=== PATIENT | female | born 1990 | race African-American/Black ===

== ENCOUNTER 2017-11-07 15:32 | Emergency (ER) | payer OTHER ==
[~2017-11-07] VITALS: Ht 165.1 cm; Wt 48.0 kg
[2017-11-07] MEDS ORDERED: LACTULOSE 20G/30ML UDC PO ONE (17:45)
[2017-11-07] MEDS ORDERED: MAGNESIUM CITRATE 300ML SOLUTION PO ONE (17:45)
[2017-11-07] MEDS ORDERED: MINERAL OIL 30ML BOTTLE PO ONE (17:45)
[2017-11-07] MEDS ORDERED: MAGNESIUM HYDROXIDE 400MG/5ML 30ML UDC PO ONE (17:45)
[2017-11-07 18:49] LABS: HEMATOCRIT. 28.8 % (36.0-48.0); HEMOGLOBIN. 8.4 g/dL (12.0-16.0); MEAN CORPUSCULAR HEMOGLOBIN 19.3 pg (28.0-32.0); MEAN PLATELET VOLUME 9.2 fl (7.4-10.4); PLATELET 535 x1000/uL (130-400); RED BLOOD CELL COUNT 4.36 mill/uL (4.2-5.4)
[2017-11-07 18:55] LABS: CHLORIDE 107 mEq/L (98-107)
[2017-11-07 19:48] LABS: PLATELET ESTIMATE INCREASED
[2017-11-07 20:30] VITALS: BP 117/78
[2017-11-07 20:56] LABS: CLARITY URINE CLOUDY (CLEAR); COLOR URINE YELLOW (YELLOW); KETONES URINE 1+ (NEGATIVE); LEUKOCYTE ESTERASE URINE 1+ (NEGATIVE); NITRITE URINE NEGATIVE (NEGATIVE); OCCULT BLOOD URINE NEGATIVE (NEGATIVE); PROTEIN URINE NEGATIVE (NEGATIVE); SPECIFIC GRAVITY URINE 1.034 (1.005-1.030)
== END 2017-11-07 20:51 | disposition home or self-care (01) ==
LOC: ER 15:32
DX: D64.9 Anemia, unspecified (principal); R05 Cough; K59.00 Constipation, unspecified; R14.0 Abdominal distension (gaseous)
CPT/HCPCS: 36415; 71045; 80053; 81003; 81025; 85025; 86850; 86900; 99285

== ENCOUNTER 2018-03-16 15:36 | Emergency (ER) | payer OTHER ==
[~2018-03-16] VITALS: Ht 165.1 cm; Wt 49.0 kg
[2018-03-16] MEDS ORDERED: IBUPROFEN 600MG TABLET PO ONE (16:30)
[2018-03-16] MEDS ORDERED: ACETAMINOPHEN 500MG TABLET PO ONE (16:30)
[2018-03-16 18:45] VITALS: BP 120/85
== END 2018-03-16 18:46 | disposition home or self-care (01) ==
LOC: ER 15:36
DX: K59.00 Constipation, unspecified (principal); M79.644 Pain in right finger(s)
CPT/HCPCS: 29125; 73130; 81025; 99283

== ENCOUNTER 2018-03-18 10:04 | Emergency (ER) | payer OTHER ==
[~2018-03-18] VITALS: Ht 165.1 cm; Wt 49.0 kg
[2018-03-18] MEDS ORDERED: MAGNESIUM CITRATE 300ML SOLUTION PO ONE (11:00)
[2018-03-18 11:15] VITALS: BP 120/82
== END 2018-03-18 13:01 | disposition home or self-care (01) ==
LOC: ER 10:17
DX: K59.00 Constipation, unspecified (principal)
CPT/HCPCS: 99282

== ENCOUNTER 2019-01-31 21:56 | Emergency (ER) | payer MEDICAID, OTHER ==
[~2019-01-31] VITALS: Ht 165.1 cm; Wt 59.0 kg
[2019-02-01 00:47] VITALS: BP 109/69
== END 2019-02-01 00:48 | disposition home or self-care (01) ==
LOC: ER 21:56
DX: K59.00 Constipation, unspecified (principal); D64.9 Anemia, unspecified
CPT/HCPCS: 99281; 99283

== ENCOUNTER 2019-02-02 15:23 | Emergency (ER) | payer MEDICAID, OTHER ==
[~2019-02-02] VITALS: Ht 165.1 cm; Wt 47.0 kg
[2019-02-02] MEDS ORDERED: SODIUM CHLORIDE 0.9% 1,000 ML IV ONE (21:21)
[2019-02-02] MEDS ORDERED: NA PHOS,M-B/NA PHOS,DI-BA ENEMA 118ML PR ONE (21:30)
[2019-02-02] MEDS ORDERED: SORBITOL 70% SOLN 30ML PO ONE (21:30)
[2019-02-02 21:44] LABS: CHLORIDE 112 mEq/L (98-107)
[2019-02-02 21:49] LABS: HCG SCREEN NEGATIVE
[2019-02-02 21:50] LABS: HEMATOCRIT. 26.9 % (36.0-48.0); HEMOGLOBIN. 8.1 g/dL (12.0-16.0); MEAN CORPUSCULAR HEMOGLOBIN 20.5 pg (28.0-32.0); MEAN CORPUSCULAR VOLUME 68.4 fL (81.0-99.0); MEAN PLATELET VOLUME 9.8 fl (7.4-10.4); PLATELET 301 x1000/uL (130-400); RED BLOOD CELL COUNT 3.94 mill/uL (4.2-5.4); RED CELL DISTRIBUTION WIDTH 19.3 % (11.6-14.6)
[2019-02-02 22:10] LABS: PLATELET ESTIMATE NORMAL
[2019-02-03 00:37] VITALS: BP 122/73
== END 2019-02-03 00:38 | disposition home or self-care (01) ==
LOC: ER 15:23
DX: K59.00 Constipation, unspecified (principal)
CPT/HCPCS: 36415; 74018; 80053; 83690; 84703; 85025; 99284; J7030

== ENCOUNTER 2020-02-22 11:41 | Emergency (ER) | payer MEDICAID ==
[~2020-02-22] VITALS: Ht 162.6 cm; Wt 47.0 kg
[2020-02-22 12:46] LABS: HEMATOCRIT. 25.9 % (36.0-48.0); HEMOGLOBIN. 7.6 g/dL (12.0-16.0); MEAN CORPUSCULAR HEMOGLOBIN 18.8 pg (28.0-32.0); MEAN CORPUSCULAR VOLUME 64.2 fL (81.0-99.0); MEAN PLATELET VOLUME 9.9 fl (7.4-10.4); PLATELET 88 x1000/uL (130-400); RED BLOOD CELL COUNT 4.03 mill/uL (4.2-5.4); RED CELL DISTRIBUTION WIDTH 21.2 % (11.6-14.6)
[2020-02-22 12:54] LABS: CHLORIDE 111 mEq/L (98-107)
[2020-02-22 12:58] LABS: HCG SCREEN NEGATIVE
[2020-02-22 13:31] LABS: PLATELET ESTIMATE DECREASED
[2020-02-22] MEDS ORDERED: MAGNESIUM CITRATE 300ML SOLUTION PO NR (14:00)
[2020-02-22] MEDS ORDERED: SODIUM CHLORIDE 0.9% 1,000 ML IV ONE (14:00)
[2020-02-22 14:28] LABS: CLARITY URINE CLOUDY (CLEAR); COLOR URINE YELLOW (YELLOW); KETONES URINE 4+ (NEGATIVE); LEUKOCYTE ESTERASE URINE 1+ (NEGATIVE); NITRITE URINE NEGATIVE (NEGATIVE); OCCULT BLOOD URINE 2+ (NEGATIVE); PROTEIN URINE TRACE (NEGATIVE); SPECIFIC GRAVITY URINE 1.027 (1.005-1.030)
[2020-02-22] MEDS ORDERED: POLYETHYLENE GLYCOL-ELECTROLYTE 4000ML PO ONE (16:30)
[2020-02-22] MEDS ORDERED: NA PHOS,M-B/NA PHOS,DI-BA ENEMA 118ML PR ONE (19:00)
[2020-02-22] MEDS ORDERED: GLYCERIN ADULT SUPPOSITORY PR NR (19:00)
[2020-02-22 22:03] VITALS: BP 109/59
== END 2020-02-22 22:04 | disposition home or self-care (01) ==
LOC: ER 11:41
DX: K59.00 Constipation, unspecified (principal); R10.84 Generalized abdominal pain; F12.10 Cannabis abuse, uncomplicated
CPT/HCPCS: 36415; 74018; 80053; 81003; 84703; 85025; 93005; 99285

== ENCOUNTER 2020-11-06 23:29 | Emergency (ER) | payer MEDICAID, OTHER ==
[~2020-11-06] VITALS: Ht 162.6 cm; Wt 55.2 kg
[~2020-11-06 23:29] MED LIST: DOCU-138 MT; FERR-71 MT
[2020-11-06 23:48] VITALS: BP 130/68
== END 2020-11-07 01:50 | disposition left against medical advice (07) ==
LOC: ER 23:29
DX: Z53.21 Procedure and treatment not carried out due to patient leaving prior to being seen by health care provider (principal)

== ENCOUNTER 2021-09-13 16:40 | Inpatient (IN) | payer OTHER ==
[~2021-09-13] VITALS: Ht 162.6 cm; Wt 54.4 kg
[2021-09-13 23:40] LABS: HEMATOCRIT. 21.6 % (36.0-48.0); MEAN CORPUSCULAR HEMOGLOBIN 17.3 pg (28.0-32.0); MEAN CORPUSCULAR VOLUME 62.8 fL (81.0-99.0); MEAN PLATELET VOLUME 9.3 fl (7.4-10.4); PLATELET 430 x1000/uL (130-400); RED BLOOD CELL COUNT 3.44 mill/uL (4.2-5.4); RED CELL DISTRIBUTION WIDTH 21.6 % (11.6-14.6)
[2021-09-14 00:01] LABS: HEMOGLOBIN. 5.9 g/dL (12.0-16.0)
[2021-09-14 00:12] LABS: CHLORIDE 110 mEq/L (98-107)
[2021-09-14 04:47] LABS: PLATELET ESTIMATE INCREASED
[2021-09-14 05:40] VITALS: BP 110/52
[2021-09-14 06:58] VITALS: BP 111/57
[2021-09-14 08:00] VITALS: BP 123/75
[2021-09-14] MEDS ORDERED: ONDANSETRON HCL 4MG/2ML INJ IV PRN (10:00)
[2021-09-14] MEDS ORDERED: CLONIDINE 0.1MG TABLET PO PRN (10:00)
[2021-09-14] MEDS ORDERED: ACETAMINOPHEN 325MG TABLET PO PRN (10:00)
[2021-09-14] MEDS ORDERED: IPRATROPIUM/ALBUTEROL 0.5-3(2.5)MG/3ML NEB HHN PRN (10:00)
[2021-09-14] MEDS ORDERED: DIPHENHYDRAMINE 50MG/ML VIAL IV PRN (10:00)
[2021-09-14 11:50] VITALS: BP 107/60
[2021-09-14 13:10] LABS: HEMATOCRIT 30.8 % (36.0-48.0); HEMOGLOBIN 9.4 g/dL (12.0-16.0)
[2021-09-14 16:00] VITALS: BP 107/60
[2021-09-14 17:15] VITALS: BP 105/62
== END 2021-09-14 18:30 | disposition home or self-care (01) | DRG 532 ==
LOC: ER 16:40 → 6WST 09-14 01:36 → ENRESERV 09-14 02:15
PROVIDERS: ADMIT Internal Medicine; ATTEND Internal Medicine
PROC: 30233N1 Transfusion of Nonautologous Red Blood Cells into Peripheral Vein, Percutaneous Approach (ICD-10-PCS; principal; 2021-09-14)
DX: N92.0 Excessive and frequent menstruation with regular cycle (principal); D50.0 Iron deficiency anemia secondary to blood loss (chronic); Z79.899 Other long term (current) drug therapy
CPT/HCPCS: 36415; 76830; 76856; 80053; 85014; 85018; 85025; 86850; 86900; 86920; 93005; 93970; 99291; P9016

== ENCOUNTER 2021-11-24 09:47 | Emergency (ER) | payer OTHER ==
[~2021-11-24] VITALS: Ht 162.6 cm; Wt 57.0 kg
[2021-11-24 10:02] VITALS: BP 117/61
[2021-11-24] MEDS ORDERED: SODIUM CHLORIDE 0.9% 1,000 ML IV ONE (10:15)
[2021-11-24 10:58] LABS: BASOPHILS % 0.5 % (0.0-2.0); EOSINOPHILS % 1.4 % (0.0-5.0); HEMATOCRIT. 31.8 % (36.0-48.0); HEMOGLOBIN. 10.2 g/dL (12.0-16.0); LYMPHOCYTES % 23.9 % (20.0-50.0); MEAN CORPUSCULAR HEMOGLOBIN 25.2 pg (28.0-32.0); MEAN CORPUSCULAR VOLUME 78.1 fL (81.0-99.0); MEAN PLATELET VOLUME 8.7 fl (7.4-10.4); NEUTROPHILS % 69.2 % (40.0-76.0); PLATELET 342 x1000/uL (130-400); RED BLOOD CELL COUNT 4.07 mill/uL (4.2-5.4); RED CELL DISTRIBUTION WIDTH 23.4 % (11.6-14.6)
[2021-11-24 11:06] LABS: CHLORIDE 109 mEq/L (98-107)
[2021-11-24 11:07] LABS: HCG SCREEN NEGATIVE
[2021-11-24] MEDS ORDERED: ONDA4TAB11 PO (12:47)
[2021-11-24 12:52] LABS: PLATELET ESTIMATE NORMAL
== END 2021-11-24 13:10 | disposition home or self-care (01) ==
LOC: ER 10:19
DX: R11.0 Nausea (principal); D64.9 Anemia, unspecified
CPT/HCPCS: 36415; 80053; 83690; 84484; 84703; 85025; 86850; 86900; 86901; 96360; 99283; J7030

== ENCOUNTER 2022-07-21 22:34 | Emergency (ER) | payer OTHER ==
[~2022-07-21] VITALS: Ht 162.6 cm; Wt 49.7 kg
[~2022-07-21 22:34] MED LIST changes: +ONDA4TAB11 PO
[2022-07-21 23:55] LABS: BASOPHILS % 0.8 % (0.0-2.0); EOSINOPHILS % 0.5 % (0.0-5.0); HEMATOCRIT. 22.9 % (36.0-48.0); MEAN CORPUSCULAR HEMOGLOBIN 19.2 pg (28.0-32.0); MEAN CORPUSCULAR VOLUME 64.8 fL (81.0-99.0); MEAN PLATELET VOLUME 8.7 fl (7.4-10.4); MONOCYTES % 6.5 % (2.0-8.0); NEUTROPHILS % 55.2 % (40.0-76.0); PLATELET 857 x1000/uL (130-400); RED BLOOD CELL COUNT 3.54 mill/uL (4.2-5.4); RED CELL DISTRIBUTION WIDTH 20.9 % (11.6-14.6)
[2022-07-22 00:04] LABS: CHLORIDE 111 mEq/L (98-107)
[2022-07-22 00:09] LABS: HEMOGLOBIN. 6.8 g/dL (12.0-16.0)
[2022-07-22 00:12] LABS: HCG SCREEN NEGATIVE
[2022-07-22 00:26] LABS: CLARITY URINE CLOUDY (CLEAR); COLOR URINE YELLOW (YELLOW); KETONES URINE TRACE (NEGATIVE); LEUKOCYTE ESTERASE URINE TRACE (NEGATIVE); NITRITE URINE NEGATIVE (NEGATIVE); OCCULT BLOOD URINE NEGATIVE (NEGATIVE); PH URINE 6.5 (4.5-8.0); PROTEIN URINE NEGATIVE (NEGATIVE); SPECIFIC GRAVITY URINE 1.026 (1.005-1.030)
[2022-07-22 02:02] LABS: PLATELET ESTIMATE MARKEDLY INCREASED
[2022-07-22 07:52] VITALS: BP 116/64
== END 2022-07-22 08:05 | disposition left against medical advice (07) ==
LOC: ER 22:34 → CANBEDREQ 07-24 14:05
DX: D64.9 Anemia, unspecified (principal); K59.00 Constipation, unspecified
CPT/HCPCS: 36415; 71045; 80053; 81003; 84484; 84703; 85025; 86850; 86900; 86901; 86920; 93005; 99285; Z7610; 36430; P9016

== ENCOUNTER 2024-02-09 10:24 | Emergency (ER) | payer MEDICAID ==
[~2024-02-09] VITALS: Ht 162.6 cm; Wt 53.0 kg
[~2024-02-09 10:24] MED LIST changes: +ONDA-239 PO; -ONDA4TAB11 PO
[2024-02-09 10:29] VITALS: O2SAT 100
[2024-02-09 11:37] LABS: HEMATOCRIT. 30.6 % (36.0-48.0); HEMOGLOBIN. 8.9 g/dL (12.0-16.0); MEAN CORPUSCULAR HEMOGLOBIN 19.9 pg (28.0-32.0); MEAN CORPUSCULAR VOLUME 68.6 fL (81.0-99.0); MEAN PLATELET VOLUME 9.4 fl (7.4-10.4); PLATELET 382 x1000/uL (130-400); RED BLOOD CELL COUNT 4.46 mill/uL (4.2-5.4); RED CELL DISTRIBUTION WIDTH 19.4 % (11.6-14.6); WHITE BLOOD COUNT 6.2 x1000/uL (4.5-11.0)
[2024-02-09 11:44] LABS: DIFFERENTIAL COMMENT 1
[2024-02-09 11:55] LABS: CHLORIDE 107 mEq/L (98-107); POTASSIUM 4.9 mEq/L (3.5-5.1); SODIUM 137 mEq/L (136-145)
[2024-02-09 11:56] LABS: CALCIUM 9.8 mg/dL (8.7-10.4); CARBON DIOXIDE 23 mEq/L (21-32)
[2024-02-09 12:01] LABS: CREATININE 0.9 mg/dL (0.6-1.0); GLUCOSE 98 mg/dL (70-105)
[2024-02-09 12:02] LABS: UREA NITROGEN BLOOD 15 mg/dL (9-23)
[2024-02-09 12:03] LABS: ALANINE AMINOTRANSFERASE 7 IU/L (10-49); ALBUMIN 4.6 g/dL (3.2-4.8); ASPARTATE AMINOTRANSFERASE 17 IU/L (<34)
[2024-02-09 12:04] LABS: BILIRUBIN DIRECT 0.3 mg/dL (<=3.0); BILIRUBIN TOTAL 1.1 mg/dL (0.1-1.0)
[2024-02-09] MEDS: ACETAMINOPHEN 325MG TABLET PO ONE (12:19)
[2024-02-09 15:12] LABS: CLARITY URINE CLOUDY (CLEAR); COLOR URINE YELLOW (YELLOW); GLUCOSE URINE NEGATIVE (NEGATIVE); KETONES URINE TRACE (NEGATIVE); LEUKOCYTE ESTERASE URINE 2+ (NEGATIVE); NITRITE URINE POSITIVE (NEGATIVE); OCCULT BLOOD URINE NEGATIVE (NEGATIVE); PH URINE 5.5 (4.5-8.0); PROTEIN URINE NEGATIVE (NEGATIVE); SPECIFIC GRAVITY URINE 1.023 (1.005-1.030); UROBILINOGEN URINE 0.2 E.U./dL (0.2-1.0)
[2024-02-09 15:47] LABS: ANISOCYTOSIS 2+; MICROCYTOSIS 3+; PLATELET ESTIMATE NORMAL
[2024-02-09 16:01] LABS: BACTERIA URINE 4+; RBC URINE 0-2 /hpf (0-2); SQUAMOUS EPITHELIAL CELL URINE 2+ /lpf (RARE/1+)
[2024-02-09 16:25] LABS: HCG SCREEN NEGATIVE
[2024-02-09] MEDS ORDERED: NITR-87 MT (16:47)
[2024-02-09] MEDS ORDERED: TOPUD MT (16:47)
[2024-02-09] MEDS ORDERED: DOCU-138 MT (16:47)
[2024-02-09] MEDS ORDERED: ONDA-239 PO (16:47)
[2024-02-09] MEDS ORDERED: FERR-71 MT (16:47)
[2024-02-09] MEDS ORDERED: IBUP-1521 MT (16:47)
[2024-02-09 16:54] VITALS: BP 118/70; PULSE 84; RESP 18; TEMP 37.05852; O2SAT 100
== END 2024-02-09 16:54 | disposition home or self-care (01) ==
LOC: ER 10:24
DX: N39.0 Urinary tract infection, site not specified (principal); D64.9 Anemia, unspecified
CPT/HCPCS: 36415; 80048; 80076; 81003; 84703; 85025; 99283

== ENCOUNTER 2024-05-16 17:12 | Emergency (ER) | payer MEDICAID ==
[~2024-05-16] VITALS: Ht 162.6 cm; Wt 46.3 kg
[~2024-05-16 17:12] MED LIST changes: +IBUP-1521 MT; +NITR-87 MT; +TOPUD MT
[2024-05-16 17:18] VITALS: BP 139/73; TEMP 37.1; O2SAT 100
[2024-05-16 17:20] VITALS: PULSE 100; RESP 16; O2SAT 100
[2024-05-16 17:52] LABS: CLARITY URINE CLEAR (CLEAR); COLOR URINE YELLOW (YELLOW)
[2024-05-16 17:53] LABS: GLUCOSE URINE NEGATIVE (NEGATIVE); PROTEIN URINE 1+ (NEGATIVE)
[2024-05-16 17:55] LABS: KETONES URINE 3+ (NEGATIVE)
[2024-05-16 17:56] LABS: LEUKOCYTE ESTERASE URINE NEGATIVE (NEGATIVE); NITRITE URINE NEGATIVE (NEGATIVE); OCCULT BLOOD URINE 1+ (NEGATIVE); UROBILINOGEN URINE 0.2 E.U./dL (0.2-1.0)
[2024-05-16 18:03] LABS: BACTERIA URINE TRACE; SQUAMOUS EPITHELIAL CELL URINE FEW /lpf (RARE/1+); WBC URINE 0-2 /hpf (0-2)
[2024-05-16 21:08] LABS: BASOPHILS % 1.1 % (0.0-2.0); DIFFERENTIAL COMMENT 0; EOSINOPHILS % 0.1 % (0.0-5.0); HEMATOCRIT. 35.3 % (36.0-48.0); HEMOGLOBIN. 10.6 g/dL (12.0-16.0); LYMPHOCYTES % 22.1 % (20.0-50.0); MEAN CORPUSCULAR HEMOGLOBIN 21.9 pg (28.0-32.0); MEAN CORPUSCULAR HGB CONC 30.2 g/dL (31.0-37.0); MEAN CORPUSCULAR VOLUME 72.5 fL (81.0-99.0); MEAN PLATELET VOLUME 9.5 fl (7.4-10.4); MONOCYTES % 13.8 % (2.0-8.0); NEUTROPHILS % 62.9 % (40.0-76.0); PLATELET 188 x1000/uL (130-400); RED BLOOD CELL COUNT 4.87 mill/uL (4.2-5.4); RED CELL DISTRIBUTION WIDTH 21.7 % (11.6-14.6); WHITE BLOOD COUNT 5.5 x1000/uL (4.5-11.0)
[2024-05-16 21:13] LABS: CHLORIDE 106 mEq/L (98-107); POTASSIUM 3.7 mEq/L (3.5-5.1); SODIUM 139 mEq/L (136-145)
[2024-05-16 21:14] LABS: CARBON DIOXIDE 23 mEq/L (21-32)
[2024-05-16 21:15] LABS: CALCIUM 9.6 mg/dL (8.7-10.4)
[2024-05-16 21:19] LABS: CREATININE 0.9 mg/dL (0.6-1.0); GLUCOSE 97 mg/dL (70-105); UREA NITROGEN BLOOD 23 mg/dL (9-23)
[2024-05-16 21:25] LABS: HCG SCREEN NEGATIVE
[2024-05-16] MEDS ORDERED: NAPR-681 MT (22:22)
== END 2024-05-16 22:30 | disposition home or self-care (01) ==
LOC: ER 17:20
DX: N94.3 Premenstrual tension syndrome (principal); Z79.1 Long term (current) use of non-steroidal anti-inflammatories (NSAID)
CPT/HCPCS: 36415; 80048; 81003; 81025; 84703; 85025; 86850; 86900; 99285

== ENCOUNTER 2024-06-01 11:10 | Emergency (ER) | payer MEDICAID, OTHER ==
[~2024-06-01] VITALS: Ht 162.6 cm; Wt 47.0 kg
[~2024-06-01 11:10] MED LIST changes: +NAPR-681 MT
[2024-06-01 11:45] VITALS: O2SAT 99
[2024-06-01 13:16] LABS: CLARITY URINE TURBID (CLEAR); COLOR URINE DARK YELLOW (YELLOW); GLUCOSE URINE NEGATIVE (NEGATIVE); KETONES URINE TRACE (NEGATIVE); LEUKOCYTE ESTERASE URINE 2+ (NEGATIVE); NITRITE URINE POSITIVE (NEGATIVE); OCCULT BLOOD URINE NEGATIVE (NEGATIVE); PH URINE 5.5 (4.5-8.0); PROTEIN URINE 1+ (NEGATIVE); SPECIFIC GRAVITY URINE 1.026 (1.005-1.030)
[2024-06-01 13:18] LABS: CHLORIDE 105 mEq/L (98-107); POTASSIUM 4.3 mEq/L (3.5-5.1); SODIUM 140 mEq/L (136-145)
[2024-06-01] MEDS: ONDANSETRON 4MG ODT PO ONE (13:18)
[2024-06-01 13:19] LABS: CALCIUM 9.4 mg/dL (8.7-10.4); CARBON DIOXIDE 26 mEq/L (21-32)
[2024-06-01 13:21] LABS: HEMOGLOBIN 9.4 g/dL (12.0-16.0); MEAN CORPUSCULAR HEMOGLOBIN 21.4 pg (28.0-32.0); MEAN CORPUSCULAR HGB CONC 30.4 g/dL (31.0-37.0); MEAN CORPUSCULAR VOLUME 70.3 fL (81.0-99.0); PLATELET 931 x1000/uL (130-400); RED CELL DISTRIBUTION WIDTH 21.4 % (11.6-14.6); WHITE BLOOD COUNT 13.2 x1000/uL (4.5-11.0)
[2024-06-01 13:24] LABS: CREATININE 0.8 mg/dL (0.6-1.0); GLUCOSE 98 mg/dL (70-105); UREA NITROGEN BLOOD 15 mg/dL (9-23)
[2024-06-01 13:25] LABS: MUCUS URINE 3+ /lpf (< = 2+); SQUAMOUS EPITHELIAL CELL URINE 3+ /lpf (RARE/1+)
[2024-06-01 13:26] LABS: BACTERIA URINE 4+; RBC URINE 0-2 /hpf (0-2); WBC URINE 15-25 /hpf (0-2)
[2024-06-01 14:39] VITALS: BP 101/66; PULSE 90; RESP 18; TEMP 36.8; O2SAT 100
[2024-06-01] MEDS ORDERED: ONDA4TAB50 MT (14:44)
[2024-06-01] MEDS ORDERED: CIPR500T5 MT (14:44)
== END 2024-06-01 14:50 | disposition home or self-care (01) ==
LOC: ER 11:10
DX: N12 Tubulo-interstitial nephritis, not specified as acute or chronic (principal); Z79.1 Long term (current) use of non-steroidal anti-inflammatories (NSAID)
CPT/HCPCS: 99283; 80048; 81003; 81025; 85027; 87086; 87186; 87077; 36415; Q0162

== ENCOUNTER 2024-07-31 16:00 | Emergency (ER) | payer MEDICAID, OTHER ==
[~2024-07-31] VITALS: Ht 175.3 cm; Wt 113.0 kg
[~2024-07-31 16:00] MED LIST changes: +CIPR500T5 MT; +ONDA4TAB50 MT
[2024-07-31 16:01] VITALS: O2SAT 98
[2024-07-31 16:24] VITALS: BP 168/137; PULSE 100; RESP 14; TEMP 36.8
[2024-07-31 16:41] LABS: HEMATOCRIT. 30.6 % (36.0-48.0); HEMOGLOBIN. 9.2 g/dL (12.0-16.0); MEAN CORPUSCULAR HEMOGLOBIN 20.8 pg (28.0-32.0); MEAN CORPUSCULAR HGB CONC 30.2 g/dL (31.0-37.0); MEAN CORPUSCULAR VOLUME 68.8 fL (81.0-99.0); PLATELET 278 x1000/uL (130-400); RED BLOOD CELL COUNT 4.44 mill/uL (4.2-5.4); RED CELL DISTRIBUTION WIDTH 20.5 % (11.6-14.6); WHITE BLOOD COUNT 8.8 x1000/uL (4.5-11.0)
[2024-07-31 16:42] LABS: DIFFERENTIAL COMMENT 1
[2024-07-31 16:43] LABS: CHLORIDE 106 mEq/L (98-107); POTASSIUM 4.1 mEq/L (3.5-5.1); SODIUM 139 mEq/L (136-145)
[2024-07-31 16:44] LABS: CARBON DIOXIDE 23 mEq/L (21-32)
[2024-07-31 16:45] LABS: CALCIUM 10.3 mg/dL (8.7-10.4)
[2024-07-31 16:49] LABS: CREATININE 0.8 mg/dL (0.6-1.0); GLUCOSE 112 mg/dL (70-105); UREA NITROGEN BLOOD 16 mg/dL (9-23)
[2024-07-31 16:51] LABS: ALANINE AMINOTRANSFERASE < 7 IU/L (10-49); ALBUMIN 4.7 g/dL (3.2-4.8); ASPARTATE AMINOTRANSFERASE 14 IU/L (<34)
[2024-07-31 16:52] LABS: BILIRUBIN DIRECT 0.2 mg/dL (<=3.0); BILIRUBIN TOTAL 0.9 mg/dL (0.1-1.0); PROTEIN TOTAL 8.3 g/dL (6.0-8.3)
[2024-07-31 16:53] LABS: HCG SCREEN NEGATIVE
[2024-07-31] MEDS: MAGNESIUM/ALUMINUM HYDROXIDE/SIMETHICONE 30ML UDC PO NR (17:04)
[2024-07-31] MEDS: ONDANSETRON 4MG ODT PO NR (17:04)
[2024-07-31] MEDS: FAMOTIDINE 20MG TABLET PO NR (17:04)
[2024-07-31 17:34] LABS: ANISOCYTOSIS 2+; HYPOCHROMASIA 2+; MICROCYTOSIS 3+; PLATELET ESTIMATE NORMAL
[2024-07-31] MEDS: DICYCLOMINE HCL 10MG/ML 2ML VIAL IM ONE (18:28)
[2024-07-31] MEDS: ONDANSETRON HCL 4MG/2ML INJ IM ONE (18:28)
[2024-07-31] MEDS ORDERED: FAMO-135 MT (19:25)
[2024-07-31] MEDS ORDERED: ONDA-239 PO (19:25)
[2024-07-31] MEDS ORDERED: MAG-55 MT (19:25)
== END 2024-07-31 19:33 | disposition home or self-care (01) ==
LOC: ER 16:00
DX: R11.2 Nausea with vomiting, unspecified (principal); Z79.1 Long term (current) use of non-steroidal anti-inflammatories (NSAID)
CPT/HCPCS: 99284; 80076; 80048; 84703; 83690; 85025; 36415; 96372; Q0162; J0500; J2405

== ENCOUNTER 2024-11-06 11:00 | Emergency (ER) | payer MEDICAID, OTHER ==
[~2024-11-06] VITALS: Ht 162.6 cm; Wt 47.1 kg
[~2024-11-06 11:00] MED LIST changes: +CIPR-452 MT; -CIPR500T5 MT; +FAMO-135 MT; +MAG-55 MT
[2024-11-06 11:07] VITALS: O2SAT 100
[2024-11-06 11:39] LABS: BASOPHILS % 0.6 % (0.0-2.0); EOSINOPHILS % 1.1 % (0.0-5.0); HEMATOCRIT. 32.8 % (36.0-48.0); HEMOGLOBIN. 10.1 g/dL (12.0-16.0); LYMPHOCYTES % 25.5 % (20.0-50.0); MEAN PLATELET VOLUME 8.9 fl (7.4-10.4); MONOCYTES % 6.5 % (2.0-8.0); NEUTROPHILS % 66.3 % (40.0-76.0); PLATELET 351 x1000/uL (130-400); RED BLOOD CELL COUNT 4.51 mill/uL (4.2-5.4); RED CELL DISTRIBUTION WIDTH 22.0 % (11.6-14.6)
[2024-11-06 11:53] LABS: ADD RBC MORPHOLOGY YES
[2024-11-06 12:10] LABS: CREATININE 0.8 mg/dL (0.6-1.0); HCG SCREEN NEGATIVE
[2024-11-06 12:11] LABS: UREA NITROGEN BLOOD 17 mg/dL (9-23)
[2024-11-06 12:12] LABS: ASPARTATE AMINOTRANSFERASE 13 IU/L (<34)
[2024-11-06 12:13] LABS: BILIRUBIN DIRECT 0.4 mg/dL (<=3.0); BILIRUBIN TOTAL 1.3 mg/dL (0.1-1.0); PROTEIN TOTAL 8.2 g/dL (6.0-8.3)
[2024-11-06 12:15] LABS: CLARITY URINE CLOUDY (CLEAR); COLOR URINE DARK YELLOW (YELLOW); GLUCOSE URINE NEGATIVE (NEGATIVE); KETONES URINE 1+ (NEGATIVE); LEUKOCYTE ESTERASE URINE 1+ (NEGATIVE); NITRITE URINE NEGATIVE (NEGATIVE); OCCULT BLOOD URINE NEGATIVE (NEGATIVE); PH URINE 5.0 (4.5-8.0); PROTEIN URINE 1+ (NEGATIVE); SPECIFIC GRAVITY URINE 1.027 (1.005-1.030); UROBILINOGEN URINE 1.0 E.U./dL (0.2-1.0)
[2024-11-06 12:41] LABS: SQUAMOUS EPITHELIAL CELL URINE 3+ /lpf (RARE/1+)
[2024-11-06 12:42] LABS: BACTERIA URINE 3+; MUCUS URINE 1+ /lpf (< = 2+); WBC URINE 0-2 /hpf (0-2)
[2024-11-06 12:43] LABS: RBC URINE NONE SEEN /hpf (0-2)
[2024-11-06 14:05] LABS: PLATELET ESTIMATE NORMAL
[2024-11-06] MEDS: FAMOTIDINE 20MG TABLET PO ONE (17:57)
[2024-11-06] MEDS: MAGNESIUM/ALUMINUM HYDROXIDE/SIMETHICONE 30ML UDC PO ONE (17:57)
[2024-11-06] MEDS: ONDANSETRON 4MG ODT PO ONE (17:57)
[2024-11-06] MEDS ORDERED: ONDA-239 PO (18:28)
[2024-11-06] MEDS ORDERED: FAMO-135 MT (18:28)
[2024-11-06 18:36] VITALS: BP 109/73; PULSE 74; RESP 12; TEMP 36.4; O2SAT 100
== END 2024-11-06 18:37 | disposition home or self-care (01) ==
LOC: ER 11:00
DX: R11.2 Nausea with vomiting, unspecified (principal); D64.9 Anemia, unspecified; Z79.899 Other long term (current) drug therapy
CPT/HCPCS: 80076; 80048; 81003; 84703; 83690; 85025; 36415; 99284; Q0162; Z7610

== ENCOUNTER 2025-02-27 13:18 | Emergency (ER) | payer MEDICAID, OTHER ==
[~2025-02-27] VITALS: Ht 162.6 cm; Wt 55.0 kg
[~2025-02-27 13:18] MED LIST changes: -CIPR-452 MT; +CIPR-494 MT
[2025-02-27 13:27] VITALS: O2SAT 100
[2025-02-27] MEDS: MAGNESIUM/ALUMINUM HYDROXIDE/SIMETHICONE 30ML UDC PO ONE (14:10)
[2025-02-27] MEDS: ACETAMINOPHEN 500MG TABLET PO ONE (14:11)
[2025-02-27] MEDS: ONDANSETRON 4MG ODT PO ONE (14:11)
[2025-02-27 14:54] LABS: CLARITY URINE TURBID (CLEAR); COLOR URINE DARK YELLOW (YELLOW); GLUCOSE URINE NEGATIVE (NEGATIVE); KETONES URINE 1+ (NEGATIVE); LEUKOCYTE ESTERASE URINE 1+ (NEGATIVE); NITRITE URINE NEGATIVE (NEGATIVE); OCCULT BLOOD URINE NEGATIVE (NEGATIVE); PH URINE 5.5 (4.5-8.0); PROTEIN URINE 1+ (NEGATIVE); SPECIFIC GRAVITY URINE 1.027 (1.005-1.030); UROBILINOGEN URINE 1.0 E.U./dL (0.2-1.0)
[2025-02-27 15:03] LABS: HEMATOCRIT. 27.8 % (36.0-48.0); HEMOGLOBIN. 7.9 g/dL (12.0-16.0); MEAN PLATELET VOLUME 9.6 fl (7.4-10.4); PLATELET 236 x1000/uL (130-400); RED BLOOD CELL COUNT 4.19 mill/uL (4.2-5.4); RED CELL DISTRIBUTION WIDTH 20.9 % (11.6-14.6)
[2025-02-27 15:04] LABS: BACTERIA URINE 2+; RBC URINE 0-2 /hpf (0-2); SQUAMOUS EPITHELIAL CELL URINE 3+ /lpf (RARE/1+); YEAST URINE NONE SEEN
[2025-02-27 15:04] LABS: HCG SCREEN NEGATIVE
[2025-02-27 15:07] LABS: CREATININE 0.8 mg/dL (0.6-1.0)
[2025-02-27 15:08] LABS: UREA NITROGEN BLOOD 15 mg/dL (9-23)
[2025-02-27 15:09] LABS: ASPARTATE AMINOTRANSFERASE 13 IU/L (<34)
[2025-02-27 15:10] LABS: BILIRUBIN DIRECT 0.3 mg/dL (<=3.0); BILIRUBIN TOTAL 0.9 mg/dL (0.1-1.0); PROTEIN TOTAL 7.9 g/dL (6.0-8.3)
[2025-02-27 17:00] VITALS: BP 128/71; PULSE 95; RESP 16; TEMP 36.9; O2SAT 99
[2025-02-27] MEDS ORDERED: CEPH500T MT (17:00)
[2025-02-27] MEDS ORDERED: ONDA-239 PO (17:01)
[2025-02-27 17:36] LABS: BAND% 1.0 % (1.0-6.0); LYMPHOCYTES % MANUAL 25.0 % (20.0-60.0); MONOCYTES % MANUAL 2.0 % (2.0-8.0); NEUTROPHILS % MANUAL 72.0 % (45.0-75.0); PLATELET ESTIMATE NORMAL
== END 2025-02-27 17:08 | disposition home or self-care (01) ==
LOC: ER 13:18
DX: N39.0 Urinary tract infection, site not specified (principal); R11.2 Nausea with vomiting, unspecified; R10.9 Unspecified abdominal pain; D64.9 Anemia, unspecified; Z79.1 Long term (current) use of non-steroidal anti-inflammatories (NSAID); Z86.018 Personal history of other benign neoplasm
CPT/HCPCS: 99284; 80076; 80048; 81003; 81025; 84703; 83690; 85025; 36415; Q0162

== ENCOUNTER 2025-03-22 16:18 | Emergency (ER) | payer MEDICAID, OTHER ==
[~2025-03-22] VITALS: Ht 162.6 cm; Wt 49.0 kg
[~2025-03-22 16:18] MED LIST changes: +CEPH500T MT
[2025-03-22 16:30] VITALS: O2SAT 100
[2025-03-22 17:20] LABS: HEMATOCRIT. 28.8 % (36.0-48.0); HEMOGLOBIN. 8.3 g/dL (12.0-16.0); MEAN PLATELET VOLUME 9.1 fl (7.4-10.4); PLATELET 86 x1000/uL (130-400); RED BLOOD CELL COUNT 4.41 mill/uL (4.2-5.4); RED CELL DISTRIBUTION WIDTH 21.2 % (11.6-14.6)
[2025-03-22 17:33] LABS: HCG SCREEN NEGATIVE
[2025-03-22 17:41] LABS: CREATININE 0.8 mg/dL (0.6-1.0)
[2025-03-22 17:42] LABS: ETHANOL BLOOD < 10 mg/dL (<10); PROTEIN TOTAL 8.2 g/dL (6.0-8.3); UREA NITROGEN BLOOD 16 mg/dL (9-23)
[2025-03-22 17:43] LABS: ASPARTATE AMINOTRANSFERASE 13 IU/L (<34)
[2025-03-22 17:44] LABS: BILIRUBIN DIRECT 0.2 mg/dL (<=3.0); BILIRUBIN TOTAL 0.7 mg/dL (0.1-1.0)
[2025-03-22 17:53] LABS: EOSINOPHILS % MANUAL 3.0 % (0.0-5.0); LYMPHOCYTES % MANUAL 23.0 % (20.0-60.0); MONOCYTES % MANUAL 6.0 % (2.0-8.0); NEUTROPHILS % MANUAL 68.0 % (45.0-75.0); PLATELET ESTIMATE DECREASED
[2025-03-22 18:37] LABS: CLARITY URINE CLOUDY (CLEAR); COLOR URINE DARK YELLOW (YELLOW); GLUCOSE URINE NEGATIVE (NEGATIVE); KETONES URINE 1+ (NEGATIVE); LEUKOCYTE ESTERASE URINE 2+ (NEGATIVE); NITRITE URINE NEGATIVE (NEGATIVE); OCCULT BLOOD URINE 1+ (NEGATIVE); PH URINE 6.0 (4.5-8.0); PROTEIN URINE 1+ (NEGATIVE); SPECIFIC GRAVITY URINE 1.032 (1.005-1.030); UROBILINOGEN URINE 1.0 E.U./dL (0.2-1.0)
[2025-03-22 18:42] LABS: *AMPHETAMINES SCREEN URINE NEGATIVE (NEGATIVE); *BARBITURATES SCREEN URINE NEGATIVE (NEGATIVE); *BENZODIAZEPINES SCREEN URINE NEGATIVE (NEGATIVE); *COCAINE SCREEN URINE NEGATIVE (NEGATIVE); METHADONE URINE SCREEN NEGATIVE (NEGATIVE); OPIATES URINE SCREEN NEGATIVE (NEGATIVE)
[2025-03-22 18:43] LABS: CANNABINOID URINE SCREEN NEGATIVE (NEGATIVE); ECSTASY MDMA SCREEN URINE NEGATIVE (NEGATIVE); PHENCYCLIDINE URINE SCREEN NEGATIVE (NEGATIVE)
[2025-03-22 18:51] LABS: BACTERIA URINE 1+; SQUAMOUS EPITHELIAL CELL URINE 2+ /lpf (RARE/1+)
[2025-03-22] MEDS: FAMOTIDINE 20MG TABLET PO ONE (19:09)
[2025-03-22] MEDS: ONDANSETRON 4MG ODT PO ONE (19:09)
[2025-03-22] MEDS: MAGNESIUM/ALUMINUM HYDROXIDE/SIMETHICONE 30ML UDC PO ONE (19:09)
[2025-03-22] MEDS ORDERED: NITR-87 MT (20:00)
[2025-03-22 20:14] VITALS: BP 126/75; PULSE 95; RESP 16; TEMP 36.7; O2SAT 99
== END 2025-03-22 20:15 | disposition home or self-care (01) ==
LOC: ER 16:18
DX: N39.0 Urinary tract infection, site not specified (principal); R11.2 Nausea with vomiting, unspecified; Z79.899 Other long term (current) drug therapy
CPT/HCPCS: 99284; 80076; 80305; 80048; 81003; 84703; 83690; 85025; 36415; G0480; Q0162; 80320